=== PATIENT | male | born 1930 | race Caucasian/White ===

== ENCOUNTER 2020-01-19 10:14 | Emergency (ER) | payer OTHER ==
[~2020-01-19] VITALS: Ht 165.1 cm; Wt 59.0 kg
[2020-01-19] MEDS ORDERED: NORVASC10 MG PO (10:32)
[2020-01-19] MEDS ORDERED: ADULT ASPIRIN81 MG PO (10:32)
[2020-01-19] MEDS ORDERED: [UNRECOGNIZED DRUG - SUPPLY] TP (10:33)
[2020-01-19] MEDS ORDERED: THERA TEARS1 EACH OP (10:33)
[2020-01-19] MEDS ORDERED: BUSPIRONE HCL7.5 MG PO (10:33)
[2020-01-19] MEDS ORDERED: COZAAR100 MG PO (10:34)
[2020-01-19] MEDS ORDERED: SERTRALINE20 MG/1 ML PO (10:34)
== END 2020-01-19 13:50 | disposition home or self-care (01) ==
LOC: ER 10:14
DX: K59.09 Other constipation (principal); M54.2 Cervicalgia